=== PATIENT | female | born 1985 | race Caucasian/White ===

== ENCOUNTER → 2019-05-13 14:07 | Outpatient (RCR) | payer OTHER | END | disposition home or self-care (01) | LOC: WSOH 04-15 12:35 | DX: S80.01XA Contusion of right knee, initial encounter (principal); M17.11 Unilateral primary osteoarthritis, right knee; W01.0XXA Fall on same level from slipping, tripping and stumbling without subsequent striking against object, initial encounter; Y93.9 Activity, unspecified; Y92.59 Other trade areas as the place of occurrence of the external cause; Y99.0 Civilian activity done for income or pay; E66.01 Morbid (severe) obesity due to excess calories ==

== ENCOUNTER 2019-05-13 14:10 | Outpatient (RCR) | payer OTHER | END 2019-06-04 13:13 | disposition home or self-care (01) | LOC: WSOH 14:10 | DX: S80.01XD Contusion of right knee, subsequent encounter (principal); M17.11 Unilateral primary osteoarthritis, right knee ==